=== PATIENT | female | born 1980 | race Caucasian/White ===

== ENCOUNTER → 2020-06-24 | Outpatient (CLI) | payer OTHER ==
--- NOTE | 2020-06-25 07:41 | REP ---
INDICATION: CANDIDA LEG PAIN W/ PVD COMPARISON: None. TECHNIQUE: Real time arellano scale and color Doppler evaluation of the bilateral lower extremity arterial vasculature using linear high frequency transducer. FINDINGS: Arellano scale and color images demonstrate mild amounts of atheromatous plaquing with areas of minimal narrowing but no focal stenosis or occlusion identified. Doppler interrogation demonstrates normal triphasic arterial wave forms and velocities bilaterally. Peak systolic velocities (cm/sec) Common femoral artery: Right 98; Left Profunda femoris: Right 85 84; Left 80 SFA (proximal): Right 94; Left 101 SFA (mid): Right 117; Left 109 SFA (distal): Right 95; Left 76 Popliteal artery: Right 86; Left 69 BLESSING (prox.): Right 67; Left 52 Tibioperoneal trunk: Right 62; Left 61 EXTRUSION LINE OPERATOR (prox.): Right 69; Left 50 EXTRUSION LINE OPERATOR (distal): Right 61; Left 41 BLESSING (distal): Right 48; Left 51 IMPRESSION: Mild atheromatous changes without focal occlusion or stenosis. <Electronically signed by Carlitos Serrano > 06/25/20 0737
== END ==
LOC: M RAD 10:38
PROVIDERS: ATTEND Physician Assistant
DX: I70.203 Unspecified atherosclerosis of native arteries of extremities, bilateral legs (principal)

== ENCOUNTER → 2023-03-07 | Outpatient (REF) | payer OTHER | LOC: M LAB REF 17:09 | PROVIDERS: ATTEND Physician Assistant | DX: J02.9 Acute pharyngitis, unspecified (principal) ==

== ENCOUNTER → 2024-10-01 | Outpatient (REF) | payer OTHER | LOC: M PLALAB 13:23 | PROVIDERS: ATTEND Advanced Practice Midwife | DX: Z53.9 Procedure and treatment not carried out, unspecified reason (principal) ==

== ENCOUNTER → 2024-11-01 | Outpatient (REF) | payer OTHER | LOC: M SFHCWAGY 16:59 | PROVIDERS: ATTEND Advanced Practice Midwife | DX: R87.612 Low grade squamous intraepithelial lesion on cytologic smear of cervix (LGSIL) (principal); R87.810 Cervical high risk human papillomavirus (HPV) DNA test positive ==